=== PATIENT | male | born 1990 | race Hispanic/Latino ===

== ENCOUNTER 2016-03-21 20:44 | Emergency (ER) | payer SELFPAY ==
[~2016-03-21] VITALS: Ht 167.6 cm; Wt 86.8 kg
[2016-03-21] MEDS ORDERED: NAPROXEN500 MG PO (22:23)
[2016-03-21 22:45] VITALS: BP 125/87
== END 2016-03-21 22:50 | disposition home or self-care (01) ==
LOC: EME → EDBD 20:44 → EME 22:50
DX: S93.402D Sprain of unspecified ligament of left ankle, subsequent encounter (principal); X50.9XXD Other and unspecified overexertion or strenuous movements or postures, subsequent encounter; Y99.0 Civilian activity done for income or pay
CPT/HCPCS: 73700; 99281; 99284